=== PATIENT | female | born 1995 | race Caucasian/White ===

== ENCOUNTER 2018-07-26 16:19 | Emergency (ER) | payer SELFPAY ==
[~2018-07-26] VITALS: Ht 154.9 cm; Wt 58.5 kg
[2018-07-26 16:27] VITALS: BP 128/97
[2018-07-26] MEDS ORDERED: NACL 0.9% 1,000 ML IV ONE (16:50)
--- NOTE | 2018-07-26 16:52 | NUR ---
PT BIB FAMILY TO THE ED WITH THE CHIEF C/O ANXIETY AND SUICIDAL IDEATION. UNABLE TO SLEEP AT NIGHT DUE TO ANXIETY PER PT. DENIES ANY MEDICAL HX. DENIES OTHER PROBLEM AT THIS TIME. PAIN 0/10 AT THIS TIME.
--- NOTE | 2018-07-26 17:02 | NUR ---
PT STATES HEARING VOICES FROM GOD. DENIES HURTING SELF OR OTHERS AT THIS TIME. NO SUICIDAL IDEATION PER PT. PT REFUSED ANSWRING APPROPRIATELY TO THE ALL QUESTIONS NURSE ASKED.
--- NOTE | 2018-07-26 17:14 | NUR ---
CALLED [facility] REQUESTING A [place] SPEAKING OFFICER TO PLACE OUR PATIENT ON [address].DISPATCHER STATED THE OFFICER IS TIED UP RIGHT NOW AND WILL CALL US WHEN THE OFFICER IS READY TO SEE PATIENT. DR. JEWELL MADE AWARE
--- NOTE | 2018-07-26 17:15 | NUR ---
PATIENT PLACED CLOSE TO NURSES STATION/ SAFETY INVIRONMENT . CLOSE WATCH . AT BEDSIDE. PATIENT COOPERATIVE. NO S/S OF AGRESSION.AWAKE/ALERT
[2018-07-26 17:49] LABS: BASOPHILS # (AUTO) 0.1 K/uL (0.00-0.22); BASOPHILS % (AUTO) 0.6 % (0.0-2.0); EOSINOPHILS # (AUTO) 0.1 K/uL (0-0.4); EOSINOPHILS % (AUTO) 1.2 % (0.0-4.0); HEMATOCRIT 43.3 % (36-48); HEMOGLOBIN 14.8 g/dL (12.0-16.0); LYMPHOCYTES # (AUTO) 1.9 K/uL (2.5-16.5); MEAN CORPUSCULAR HEMOGLOBIN 30 pg (27-31); MEAN CORPUSCULAR HGB CONC 34 g/dL (33-37); MEAN CORPUSCULAR VOLUME 87.4 fL (80-94); MONOCYTES # (AUTO) 0.6 K/uL (0.8-1.0); MONOCYTES % (AUTO) 6.4 % (1.7-9.3); NEUTROPHILS # (AUTO) 6.5 K/uL (1.8-7.7); NEUTROPHILS % (AUTO) 70.8 % (42.2-75.2); PLATELET COUNT (AUTO) 231 K/uL (140-450); RED BLOOD CELL COUNT(AUTO) 4.96 MIL/uL (4.20-5.40); RED CELL DISTRIBUTION WIDTH 13.4 % (11.6-13.7); WHITE BLOOD COUNT (AUTO) 9.2 K/uL (4.8-10.8)
[2018-07-26 17:52] LABS: ALBUMIN 4.3 g/dL (3.4-5.0); ANION GAP 14.6 (8-16); ASPARTATE AMINOTRANSFERASE 22 U/L (15-37); CARBON DIOXIDE 27.4 mmol/L (21-32); CHLORIDE 102 mmol/L (98-107); CREATININE 0.7 mg/dL (0.6-1.3); GFR ARICAN-AMERICAN 136 mL/min (>90); GLUCOSE 96 mg/dL (74-106); SODIUM SERUM 140 mmol/L (136-145); TOTAL BILIRUBIN 1.1 mg/dL (0.0-1.0); UREA NITROGEN, BLOOD 5 mg/dL (7-18)
--- NOTE | 2018-07-26 18:08 | NUR ---
SATURATING 100% IN ROOM AIR. BREATHING NORMALLY. FAMILY AT THE BEDSIDE.
--- NOTE | 2018-07-26 18:13 | NUR ---
STILL AWAITING FOR [place] [employer] TO EVALUATE PATIENT.
[2018-07-26 18:18] LABS: APPEARANCE,URINE CLEAR (CLEAR); BILIRUBIN,URINE NEGATIVE (NEGATIVE); BLOOD, URINE NEGATIVE (NEGATIVE); COLOR,URINE YELLOW (YELLOW); LEUKOCYTE ESTERASE ,URINE NEGATIVE (NEGATIVE); NITRITE, URINE NEGATIVE (NEGATIVE); UGLUCOSE NEGATIVE (NEGATIVE)
[2018-07-26 18:29] LABS: ACETAMINOPHEN < 0.5 ug/ml (10-30); SALICYLATE < 2.8 mg/dL (2.8-20.0)
[2018-07-26 18:36] LABS: BARBITURATE, URINE NEGATIVE ng/ml (NEG <=200); BENZODIAZEPINE, URINE NEGATIVE ng/mL (NEG <=200); CANNABINOID, URINE NEGATIVE ng/mL (NEG <=50); COCAINE, URINE NEGATIVE ng/mL (NEG <=300); OPIATE, URINE NEGATIVE ng/mL (NEG <=2000); PHENCYCLIDINE SCREEN,URINE NEGATIVE ng/mL (NEG <=25)
--- NOTE | 2018-07-26 18:41 | NUR ---
[place] [employer] OFFICER ARRIVED TO EVALUATE PATIENT. OFFICER TALKING TO PA. SNEHA AT THIS TIME.
--- NOTE | 2018-07-26 18:44 | NUR ---
[place] [employer] OFFICER IN BED#5 TALKING TO PATIENT
--- NOTE | 2018-07-26 19:00 | NUR ---
AFTER EVALUATION FROM [place] [employer], PER [place] [employer], PT DOES NOT MEET CRITERIA OF [address]. [facility] PD SPOKE TO DR. JEWELL. DR. JEWELL RECOMMEND TELE PSYCH CONSULT.
--- NOTE | 2018-07-26 19:07 | NUR ---
SENT REQUEST FOR TELEPYSCH PER DR. HOLDEN REQUEST
--- NOTE | 2018-07-26 19:09 | NUR ---
REPORT GIVEN TO PAINT SPRAYER SANDBLASTER RN FOR CONTINUITY OF CARE.
--- NOTE | 2018-07-26 19:12 | NUR ---
PT SITTING UP IN BED, VSS
--- NOTE | 2018-07-26 19:48 | NUR ---
PT AMBULATED TO THE RESTROOM PT TOLERATED WELL.
--- NOTE | 2018-07-26 22:19 | NUR ---
SPOKE TO TELEPSYCH MD, GAVE REPORT. MD TO ASSESS PT WITHIN THE HOUR. ER MD MADE AWARE.
--- NOTE | 2018-07-26 22:45 | NUR ---
PT TALKING WITH VIA TELEPSYCH
--- NOTE | 2018-07-26 22:59 | NUR ---
SPOKE TO TELEPSYCH . TO BE RELEASED AND REFERRED TO OUTPATIENT CARE . WILL FAX OVER DOCUMENTS. ER MD MADE AWARE.
[2018-07-26] MEDS ORDERED: ZIPRASIDONE MESYLATE 20 MG/ML VIAL IM ONE (23:35)
--- NOTE | 2018-07-27 00:20 | NUR ---
PT SITTING UP IN BED. PT RECIEVED A SANDWICH. PT TOLERATED WELL.
--- NOTE | 2018-07-27 00:24 | NUR ---
Patient chart has been received. Call Center will call contracted facilities for voluntary admissions.
--- NOTE | 2018-07-27 00:45 | NUR ---
Following facilities were called for voluntary bed placement. [facility], spoke with Farzaneh. No beds available tonight, not accepting any packets at this time. [facility], spoke with Cherri. No beds available tonight. [facility], spoke with Alfredo. No beds available tonight. [facility], spoke with Sangita. No beds available at this time. Packet has been faxed. [facility], spoke with Rima. No beds available tonight. Packet has been faxed. [facility], spoke with Farzaneh. No beds available tonight. [facility], packet has been faxed. will continue to update unit regarding bed placement.
--- NOTE | 2018-07-27 01:37 | NUR ---
CONTACTED FAMILY REGARDING PT TO BE DC. FAMILY FINDING A RIDE HOME. ER MADE AWARE.
[2018-07-27] MEDS ORDERED: LORazepam 2 MG/ML VIAL IM ONE (02:05)
[2018-07-27] MEDS ORDERED: LORazepam 2 MG/ML VIAL IVP ONE (02:10)
[2018-07-27 02:35] VITALS: BP 132/78
--- NOTE | 2018-07-27 02:35 | NUR ---
Patient does not wish to proceed with medical care recommended by DR. HOLDEN. Patient given information related to possible complications, up to and including , which could occur as a result of leaving hospital at this time. Patient verbalizes understanding of risks involved leaving against medical advice. Patient has signed AMA form. PT VSS
--- NOTE | 2018-07-27 02:35 | NUR ---
Patient discharged/AMA with v/s stable. Written and verbal after care instructions given and explained. Patient/ alert, oriented and verbalized understanding of instructions. Ambulatory with steady gait. All questions addressed prior to discharge. ID band removed. Patient advised to follow up with PMD. Rx of ZYPREXA given. Patient/ educated on indication of medication including possible reaction and side effects. Opportunity to ask questions provided and answered.
== END 2018-07-27 02:35 | disposition left against medical advice (07) ==
LOC: MED 16:19
DX: F31.9 Bipolar disorder, unspecified (principal); R44.0 Auditory hallucinations; R44.1 Visual hallucinations; F20.9 Schizophrenia, unspecified; F32.9 Major depressive disorder, single episode, unspecified
CPT/HCPCS: 36415; 71045; 80053; 80305; 81003; 81025; 84484; 85025; 93005; 96372; 96374; 99284; G0480; G0482; J2060; J3486; J7030